=== PATIENT | female | born 1940 | race Caucasian/White ===

== ENCOUNTER → 2016-10-01 | Outpatient (CLI) | payer OTHER, MEDICARE ==
--- NOTE | 2016-10-01 12:59 | MA ---
Screening Digital Mammogram With iCAD Indication: Routine screening. Technique: Standard cephalocaudal and mediolateral oblique projections were obtained. This examinat ion was processed by the iCAD computer-aided detection system. Comparison: September 2015, August 2014, August 2013, August 2012, and August 2011 Breast density: Type B. Findings: CAD was reviewed. No suspicious microcalcifications, mass, or architectural distortion. Impression: Negative mammogram BI-RADS 1: Negative mammogram. Recommendation: Routine screening is recommended in one year[facility]. Negative mammography should not preclude additional workup of a clinically suspicious finding. The patient's information is entered into a reminder system with a target due date for her next mammo gram.
== END ==
LOC: CIMAGING 10:17
PROVIDERS: ATTEND Family Medicine
DX: Z12.31 Encounter for screening mammogram for malignant neoplasm of breast (principal)
CPT/HCPCS: G0202

== ENCOUNTER → 2017-10-02 | Outpatient (CLI) | payer OTHER, MEDICARE | LOC: CIMAGING 09:31 | PROVIDERS: ATTEND Family Medicine | DX: Z12.31 Encounter for screening mammogram for malignant neoplasm of breast (principal) ==

== ENCOUNTER 2018-08-28 17:16 | Observation (INO) | payer OTHER, MEDICARE ==
--- NOTE | 2018-08-28 17:57 | EDPHY ---
H & P Time Seen by Provider: 08/28/18 17:37 HPI/ROS: CHIEF COMPLAINT: Rapid heartbeat HISTORY OF PRESENT ILLNESS: The patient is a 77-year-old female with a history of hypertension who presents emergency department with rapid heart beat. Patient states that 1 week ago she had a pounding in her chest and subsequently felt weak. These symptoms resolved. She walks a 1000 steps today. She states yesterday she again had an episode of weakness, but no pounding heart. She has minimal shortness of breath. No cough or fever. No leg pain or swelling. The patient denies any recent fevers or chills. The patient went to see her primary care physician today. An EKG revealed atrial flutter at 140 bpm. Her primary care physician gave her she appeared but that had Eliquis 5 mg twice daily and Cardizem 120 mg once daily with a plan to follow-up with [facility]. Per report, he sent the EKG to [facility] and they recommend the patient be evaluated in the emergency department. Patient feels well at this time. No chest pain. REVIEW OF SYSTEMS: 10 systems were reveiwed and are negative with the exception of the elements mentioned in the history of present illness. Past Medical/Surgical History: Includes hypertension Past surgical history: Noncontributory Social history: Patient does not smoke Smoking Status: Never smoked Physical Exam: Vitals noted. Heart rate 137. Blood pressure 158/109 GENERAL: Well-appearing, in no acute distress, alert. HEENT: Eyes normal to inspection, normal pharynx, no signs of dehydration. NECK: Normal, supple. RESPIRATORY: Clear to auscultation bilaterally, no rales, rhonchi or wheezing. CVS: Regular tachycardia, no rubs, murmurs, or gallops. ABDOMEN: Soft, nontender, nondistended, no organomegaly. BACK: Normal to inspection, no CVA tenderness. SKIN: Normal color, no rash, warm, dry. No pallor. EXTREMITIES: No pedal edema, no calf tenderness, no Homans sign or cords, no joint swelling. NEURO/PSYCH: Alert and oriented, normal mood and affect, normal motor sensory exam. No obvious cranial nerve deficit. Constitutional: Initial Vital Signs Temperature (C) 36.4 C 08/28/18 17:19 Heart Rate 137 H 08/28/18 17:19 Respiratory Rate 18 08/28/18 17:19 Blood Pressure 158/109 H 08/28/18 17:19 O2 Sat (%) 97 08/28/18 17:19 O2 Delivery Mode Room Air Allergies/Adverse Reactions: No Known Allergies Allergy (Unverified 08/28/18 17:23) Home Medications: Medication Instructions Recorded Enalapril Maleate [Vasotec 10 MG 10 mg PO DAILY 08/28/18 (*)] Herbals/Supplements -Info Only 1 ea PO DAILY 08/28/18 Simvastatin 10 mg PO HS 08/28/18 Medical Decision Making ED Course/Re-evaluation: In the emergency department I discussed possible etiologies with the patient answered all her questions. An IV was placed. Laboratory studies, EKG and chest x-ray were obtained. My EKG: Atrial flutter at 137. Left axis deviation. Flipped T-waves V5 and V6. I discussed the case with Dr. Aniya Guerin from Cardiology. She recommended diltiazem bolus and then diltiazem drip. She recommended admission. I discussed this plan with the patient. I answered all her questions. I discussed the case with Dr. Forrester from the hospitalist service. He will admit the patient. The CBC was normal. Coags are normal. D-dimer is negative. Chemistry panel showed mild hyponatremia. Differential Diagnosis: My differential includes but is not limited to atrial fibrillation, atrial flutter, SVT, ACS, acute VA, electrolyte abnormality, sugar abnormality, dehydration Critical Care Time: The patient required 35 min of critical care time. This was exclusive of any unbundled procedure. This was due the patient's rapid heart rate, consultation with Cardiology and hospitalist service, time spent at the bedside and treatment with diltiazem. - Data Points Medications Given: Discontinued Medications Aspirin (Aspirin) 324 mg PO EDNOW ONE Stop: 08/28/18 18:02 Last Admin: 08/28/18 18:19 Dose: 324 mg Diltiazem HCl (Cardizem 25 Mg/5 Ml Vial) 10 mg IVP EDNOW ONE Stop: 08/28/18 18:02 Last Admin: 08/28/18 18:20 Dose: 10 mg Diltiazem HCl 125 mg/ Dextrose 125 mls @ 0 mls/hr IV EDNOW ONE; As Directed PRN Reason: Protocol Stop: 08/28/18 18:02 Last Admin: 08/28/18 18:56 Dose: 125 mls Departure - Departure Disposition: [facility] Acute Clinical Impression: Atrial flutter with rapid ventricular response Atrial flutter Qualifiers: Atrial flutter type: typical Qualified Code(s): I48.3 - Typical atrial flutter Condition: Good
[2018-08-28] MEDS ORDERED: DILTIAZEM 125 MG in D5W 125 ML IV ONE (18:01)
[2018-08-28] MEDS ORDERED: ASPIRIN 81 MG CHEWABLE TAB PO ONE (18:01)
[2018-08-28] MEDS ORDERED: DILTIAZEM 25 MG/5 ML VIAL IVP ONE ×2 (18:01→19:45)
[2018-08-28 18:37] LABS: PLATELET COUNT 209 10^3/uL (150-400)
[2018-08-28 18:45] LABS: INR 0.98 (0.83-1.16); PROTIME(PATIENT) 13.2 SEC (12.0-15.0)
[2018-08-28] MEDS ORDERED: ONDANSETRON DISINTEGRATING 4 MG TAB PO PRN (19:59)
[2018-08-28] MEDS ORDERED: ONDANSETRON 4 MG/2 ML VIAL IVP PRN (19:59)
[2018-08-28] MEDS ORDERED: ACETAMINOPHEN 325 MG TAB PO PRN (19:59)
--- NOTE | 2018-08-28 20:52 | GHP ---
DATE OF ADMISSION: 08/28/2018 HISTORY OF PRESENT ILLNESS: The patient is a 77-year-old female with a history of hypertension and h yperlipidemia, who presents to the hospital today with palpitations. Actually on , she had an episode of palpitations that lasted a few minutes. It happened 3 times that day. It then hap pened again yesterday. She felt weak during it. She did not have chest pain or shortness of breath or diaphoresis. She became concerned with symptoms and presented to her primary care physician today , where she was found to have an EKG that showed atrial flutter in the 130s, and she was referred to the emergency department. When I see the patient, she is in atrial flutter at about 135 beats a minute. She otherwise feels we ll. She is not having chest pain. She has not had lower extremity edema. She does not drink alcoho l. She has had no thyroid dysfunction, and no family or personal history of atrial arrhythmias. REVIEW OF SYSTEMS: Complete 10-point review of systems is conducted. Negative, except as noted in t he HPI. PAST MEDICAL HISTORY: Hypertension, hyperlipidemia, and obesity. She has lost [address] couple of years on purpose. ALLERGIES: She has no known drug allergies. HOME MEDICATIONS: Lisinopril/hydrochlorothiazide, simvastatin. She took aspirin with the onset of t hese symptoms. SOCIAL HISTORY: No alcohol. Lives in [place]. Daughter present at the bedside. FAMILY HISTORY: Reviewed and unremarkable. PHYSICAL EXAM: VITAL SIGNS: Temp 36.7, blood pressure , pulse 115, breathing 18 times a m inute, 95% on room air. GENERAL: No acute distress. HEENT: Sclerae anicteric. Oropharynx is lila r. Mucous membranes are moist. NECK: Supple without lymphadenopathy or JVD. LUNGS: Clear to ausc ultation bilaterally. HEART: S1, S2. Tachycardic. No significant murmurs. ABDOMEN: Soft, nonten rene, nondistended. LOWER EXTREMITIES: Without edema. Calves nontender. SKIN: Without rash. NEUR OLOGIC: Nonfocal. LABORATORY DATA: White count 6, hematocrit 47, platelets 209,000. INR and D-dimer are normal. Sodi um 134, potassium 4.5, chloride 103, bicarb 22, BUN 31, creatinine 0.9. Troponin is pending. Initia l [id number] troponin 0.01. Chest x-ray interpreted by me shows no acute cardiopulmonary disease. Moderate cardiac enlargement. EKG shows A flutter at 137 with normal axis and intervals. There ar e no ST or T-wave changes. I have discussed the case with Dr. Vivek Bonds as well as Dr. Malatih Graham. ASSESSMENT AND PLAN: 77-year-old female with new atrial flutter. 1. Atrial flutter. This is pretty rapid and somewhat refractory to diltiazem, although it appears s he is slowing down a bit. If she has not slowed down significantly to about 100 or less, I will swit ch over to amiodarone. I will order echocardiogram, repeat a troponin. I have started her on Eliqui s. I have made her nothing by mouth past midnight, and Cardiology will see her for likely cardiovers ion if she does not overnight. 2. Hyperlipidemia. Continue her statin. 3. Hypertension. Will hold her antihypertensives now. 4. Prophylaxis. She is started on Eliquis. 5. Hyponatremia. This is mild at 134 and not contributing to the current situation. DISPOSITION: Observation status. /[id number]/MODL
[2018-08-28] MEDS ORDERED: PRAVASTATIN SODIUM 20 MG TAB PO SCH (21:00)
[2018-08-28] MEDS ORDERED: AMIODARONE HCL 200 ML IV ONE (22:07)
[2018-08-28] MEDS ORDERED: AMIODARONE HCL 100 ML IV ONE (22:07)
[2018-08-28] MEDS: APIXABAN 5 MG TAB PO SCH (22:30)
[2018-08-29] MEDS ORDERED: AMIODARONE HCL 540 MG in D5W 300 ML IV ONE (04:30)
[2018-08-29] MEDS: APIXABAN 5 MG TAB PO SCH (09:55)
[2018-08-29] MEDS ORDERED: ATROPINE SULFATE 1 MG/10 ML SYR IVP ONE (09:59)
--- NOTE | 2018-08-29 10:38 | PDANEPAE ---
ANE History of Present Illness RADHA, CV ANE Past Medical History - Cardiovascular History Hx Hypertension: Yes Hx Arrhythmias: Yes Hx Chest Pain: No Hx Coronary Artery / Peripheral Vascular Disease: No Hx CHF / Valvular Disease: No Hx Palpitations: No - Pulmonary History Hx COPD: No Hx Asthma/Reactive Airway Disease: No Hx Recent Upper Respiratory Infection: No Hx Oxygen in Use at Home: No Hx Sleep Apnea: No - Endocrine History Hx Diabetes: No - Chronic Pain History Chronic Pain: No ANE Review of Systems Review of systems is: negative Review of Systems: - Exercise capacity Exercise capacity: >=4 METS ANE Patient History - Allergies Allergies/Adverse Reactions: No Known Allergies Allergy (Unverified 08/28/18 17:23) - Home Medications Home medications: home medication list seen and reviewed Home Medications: Enalapril Maleate [Vasotec 10 MG (*)] 10 mg PO DAILY 08/28/18 [Last Taken 07:30] Herbals/Supplements -Info Only 1 ea PO DAILY 08/28/18 [Last Taken 08/28/18] Simvastatin 10 mg PO HS 08/28/18 [Last Taken 08/27/18] - Anes Hx Anes Hx: no prior problems - Smoking Hx Smoking Status: Never smoked ANE Labs/Vital Signs - Labs Result Diagrams: 08/28/18 18:15 08/29/18 03:44 - Vital Signs Blood Pressure: 98/88 Heart Rate: 127 Respiratory Rate: 18 O2 Sat (%): 97 Height: 158.75 cm Weight: 73 kg ANE Physical Exam - Airway Neck exam: FROM Mallampati Score: Class 2 Mouth exam: normal dental/mouth exam - Pulmonary Pulmonary: no respiratory distress - Cardiovascular Cardiovascular: regular rate and rhythym - ASA Status ASA Status: II ANE Anesthesia Plan Anesthesia Plan: GA with mask
[2018-08-29] MEDS ORDERED: PROPOFOL 200 MG/20 ML VIAL ONE (10:41)
--- NOTE | 2018-08-29 11:04 | POSTANESTH ---
Post Anesthetic Evaluation Cardiovascular Status: Normal, Stable Respiratory Status: Normal, Stable Level of Consciousness/Mental Status: Can Participate in Eval, Mildly Sleepy, Arousable Pain Control: Adequate, Prn Tx Ordered Nausea/Vomiting Control: Adequate, Prn Tx Ordered Complications Possibly Related to Anesthesia: None Noted
--- NOTE | 2018-08-29 11:15 | GCON ---
CARDIAC CONSULTATION DATE OF CONSULTATION: 08/29/2018 CHIEF COMPLAINT: Palpitations. HISTORY OF PRESENT ILLNESS: The patient is a 77-year-old female with a history of hypertension and hyperlipidemia, who presented to her primary care physician' s office yesterday in atrial flutter with rapid ventricular rates. Around Nelson time, she had noted palpitations, which felt like a pounding in her chest. Her episodes would last for approximately 5 minutes and resolved with her sitting down. On 1 day, this occurred 3 times. Her palpitations were associated with some weakness, but she denied any chest pain, shortness of breath, presyncope, or syncope. Approximately 2 days ago, she again felt palpitations with associated weakness. She tried to eat some toast and felt better after that. She has continued to walk her 10,000 steps during this time period without associated symptoms. On admission to the hospital, she does appear to be in atrial flutter versus an atrial tachycardia with rates of 140 beats per minute. She was initially given diltiazem but was somewhat refractory to this. She was then started on amiodarone for rate control. Her rates continued to be in the 120s despite medical therapy. PAST MEDICAL HISTORY: Hypertension, hyperlipidemia, obesity. FAMILY HISTORY: Her father had a CVA at the age of 58. She denies any family history of coronary artery disease. SOCIAL HISTORY: She denies any history of tobacco use. [facility]. She does have a daughter who lives nearby. REVIEW OF SYSTEMS: Negative, except for what is stated in the H and P. HOME MEDICATIONS: Simvastatin 10 mg at bedtime, herbal supplement daily, Vasotec 10 mg daily. ALLERGIES: No known drug allergies. PHYSICAL EXAMINATION: GENERAL: Patient appears in no acute distress. VITALS: Blood pressure 98/88, heart rate 127, oxygen saturation of 97% on room air. Afebrile. EYES: Conjunctivae within normal limits. NECK: No carotid bruits or JVD present. LUNGS: Clear to auscultation. No wheezes, rhonchi, or crackles auscultated. CARDIAC: Tachycardic, without any murmurs, rubs, or gallops appreciated. ABDOMEN: Soft, nontender, nondistended. EXTREMITIES: Palpable pulses bilaterally, without any evidence of edema. NEUROLOGIC: Nonfocal. PSYCHIATRIC: Mood and affect appropriate. SKIN: No obvious rashes or ecchymosis identified. LABORATORY DATA: D-dimer 0.34. Troponin negative x2. TSH 8.63. Sodium 136, potassium 4.6, chloride 108, bicarb 20, BUN 29, creatinine 0.7. ASSESSMENT: The patient is a 77-year-old female with a history of hypertension and hyperlipidemia, who presents in atrial flutter with rapid ventricular rates. PLAN: The patient presented in atrial flutter versus less likely left atrial tachycarcia with rapid ventricular rates of 140 beats per minute. She is minimally symptomatic, only complaining of intermittent palpitations. She was given a trial of diltiazem without any improvement in her rates. She was then started on amiodarone, and her rates are slightly better controlled but still elevated at 120 beats per minute. Medical management versus RADHA cardioversion were discussed with her today. She has agreed to proceed with a RADHA cardioversion. Her CHADS-VASc score is 4, and she was started on Eliquis 5 mg b.i.d. Consider reducing Vasotec and adding low dose beta celina for rate control. Follow up with Cardiology 1 week post cardioversion. /[id number]/MODL MTDD
--- NOTE | 2018-08-29 12:16 | PDTEE1 ---
RADHA Cardioversion Procedure Procedure: electrical cardioversion, transesophageal echo Indications: other (atrial flutter) Consent: signed and in chart Anticoagulation: eliquis Procedural Details: After consents for anesthesia, RADHA, and possible cardioversion were signed and in the chart, the patient was positioned on the left lateral side. Sedation was induced, and the RADHA probe was placed without difficulty. Standard views were obtained. Preliminary RADHA findings (1) Normal left ventricular systolic ejection fraction (2) Moderate biatrial dilation (3) Mild mitral regurgitation (4) Mild tricuspid regurgitation (5) Trileaflet aortic valve with sclerosis, but no stenosis. Physiologic insufficiency (6) Physiologic pulmonic insufficiency (7) Bubble contrast injection without right to left passage (8) No thrombus to the left atrial appendage (9) Mild atheroma to the descending aorta Given a lack of thrombus to the MORGAN, we opted to proceed with cardioversion. Synchronized cardioversion attempt #1: 200J Results: normal sinus rhythm (after a brief 9 beat run of VT was noted.) Conclusions: successful RADHA cardioversion Patient Problems: Problems Problem Status Onset Atrial flutter Acute Atrial flutter with rapid ventricular response Acute
--- NOTE | 2018-08-29 12:19 | ECHO ---
[email or web address] [address] [address] Main: [phone] Fax: Transesophageal Echocardiography Name: MARCO A JERNIGAN MR#: [id number] Study Date: 08/29/2018 Study Time: 10:39 AM Date of : 1940 Age: 77 year(s) Height: ( ) Weight: ( ) BSA: Gender: Female Examination: Indication: Pre Cardioversion Image Quality: Contrast: Requested by: Alexa Kevin Heart Rate: Rhythm: Atrial flutter BP: / Procedure Staff [employer] Territory Manager: Evans Bear RDCS Reading Physician: Vivek Bonds MD Requesting Provider: RADHA Exam Details Conclusions: Normal size left ventricle. Normal global systolic LV function. No regional wall motion abnormality. Normal size right ventricle. Normal RV function. The left atrium is mildly dilated. An agitated saline study was performed and was negative for intracardiac shunting. Good color flow doppler in the left atrial appendage. No thrombus in left appendage. The right atrium is mildly dilated. The mitral valve is normal in appearance. Mild mitral valve regurgitation is present. The aortic valve is tri-leaflet. The aortic valve is normal in appearance. The tricuspid valve appears normal. Mild tricuspid regurgitation is present. Measurements: Chambers Valvular Assessment AV/MV Valvular Assessment TV/PV Normal Normal Normal Name Value Range Name Value Range Name Value Range Additional Measurements: Patient: MARCO A JERNIGAN Study Date: 08/29/2018 Page 1 of 2 10:39 AM Findings: Left Ventricle: Normal size left ventricle. Normal global systolic LV function. No regional wall motion abnormality. Right Ventricle: Normal size right ventricle. Normal RV function. Left Atrium: The left atrium is mildly dilated. An agitated saline study was performed and was negative for intracardiac shunting. Left Atrial Appendage: Good color flow doppler in the left atrial appendage. No thrombus in left appendage. Right Atrium: The right atrium is mildly dilated. Mitral Valve: The mitral valve is normal in appearance. Mild mitral valve regurgitation is present. Aortic Valve: The aortic valve is tri-leaflet. The aortic valve is normal in appearance. Tricuspid Valve: The tricuspid valve appears normal. Mild tricuspid regurgitation is present. Pulmonic Valve: The pulmonic valve is normal in appearance and function. Exam Comments: Proceeded with successful elective DC cardioversion.. l1n (No Signature Object) Patient: MARCO A JERNIGAN Study Date: 08/29/2018 Page 2 of 2 10:39 AM [id number]
--- NOTE | 2018-08-29 12:43 | ECHO ---
[email or web address] [address] [address] Main: [phone] Fax: Transthoracic Echocardiogram Name: MARCO A JERNIGAN MR#: [id number] Study Date: 08/29/2018 Study Time: 08:04 AM Date of : 1940 Age: 77 year(s) Height: 157.5 cm (62 in.) Weight: 72.58 kg (160 lb.) BSA: 1.74 m2 Gender: Female Examination: Echo Indication: New onset of Atrial Flutter Image Quality: Contrast: Requested by: Wilver Forrester BP: 98 mmHg/88 mmHg Heart Rate: Rhythm: Atrial flutter Indication: New onset of Atrial Flutter Procedure Staff Rn Lpn Cna: Evans Bear RD Reading Physician: Vivek Bonds MD Requesting Provider: Conclusions: Normal size left ventricle. No LV hypertrophy. Normal global systolic LV function. EF is 55 %. No regional wall motion abnormality. Diastolic dysfunction is present. . Normal size right ventricle. No RV hypertrophy. The left atrium is normal in size. The right atrium is normal in size. The mitral valve is normal in appearance. Mild mitral valve regurgitation is present. The aortic valve is normal in appearance and function. There is no significant aortic valve regurgitation. The tricuspid valve is normal in appearance and function. The pulmonic valve is normal in appearance and function. No pericardial effusion. Measurements: Chambers Valvular Assessment AV/MV Valvular Assessment TV/PV Normal Normal Normal Name Value Range Name Value Range Name Value Range Ao Adelita (MM): 2.9 cm (2.2 cm-3.7 AV Vmax: 1.25 m/s (1 m/s-1.7 PV Vmax: 0.64 m/s (0.6 m/s-0.9 cm) m/s) m/s) IVSd (2D): 0.7 cm (0.6 cm-1.1 AV maxP mmHg ( - ) PV PGmax: 2 mmHg ( - ) cm) LVOT Vmax: 0.74 m/s (0.7 m/s-1.1 LVDd (2D): 4.0 cm (3.9 cm-5.3 m/s) cm) MV E Vmax: 0.71 m/s ( - ) LVDs (2D): 2.9 cm (2.1 cm-4 cm) Patient: MARCO A JERNIGAN Study Date: 08/29/2018 Page 1 of 2 08:04 AM LVPWd (2D): 1.0 cm ( - ) LVEF (2D): 55 (>=54 %) Continued Measurements: Chambers Valvular Assessment AV/MV Name Value Name Value LADs: 4.1 cm MV E/E' Septal: 7.60 LADs Lon.2 cm MV E/E' Lateral: 5.60 LA Area: 17.4 cm2 LA Volume: 54 ml LA Volume Index: 31.0 ml/m2 Findings: Left Ventricle: Normal size left ventricle. No LV hypertrophy. Normal global systolic LV function. EF is 55 %. No regional wall motion abnormality. Diastolic dysfunction is present. . Right Ventricle: Normal size right ventricle. No RV hypertrophy. Normal RV function. Left Atrium: The left atrium is normal in size. Right Atrium: The right atrium is normal in size. Mitral Valve: The mitral valve is normal in appearance. Mild mitral valve regurgitation is present. Aortic Valve: The aortic valve is normal in appearance and function. There is no significant aortic valve regurgitation. Tricuspid Valve: The tricuspid valve is normal in appearance and function. Pulmonic Valve: The pulmonic valve is normal in appearance and function. Aorta: The aorta is normal. Pericardium: No pericardial effusion. (No Signature Object) Patient: MARCO A JERNIGAN Study Date: 08/29/2018 Page 2 of 2 08:04 AM [id number]
[2018-08-29 15:51] VITALS: BP 138/84
--- NOTE | 2018-08-29 16:42 | PDDCSUM ---
Discharge Summary Discharge Summary: 77 yo female admitted with new onset afib. Her BP did not tolerate CCB. She was started on Amio w/o significant improvement. She was cardioverted successfully. She was started on Eliquis. Amiodarone was not continued. She will f/u with Cardiology DDX: #New onset Afib #HTN #HLD meds: see med rec f/u: per above total time spend on d/c is 35 mins
--- NOTE | 2018-08-30 14:33 | CPEKG ---
Test Reason : OPEN Blood Pressure : / mmHG Vent. Rate : 137 BPM Atrial Rate : 136 BPM P-R Int : 119 ms QRS Dur : 094 ms QT Int : 378 ms P-R-T Axes : 097 -32 -78 degrees QTc Int : 571 ms Sinus tachycardia Left axis deviation Nonspecific T abnormalities, diffuse leads Prolonged QT interval Confirmed by Malathi Graham ([id number]) on 08/30/2018 2:33:37 PM Referred By: Confirmed By:Malathi Graham
--- NOTE | 2018-08-31 09:01 | CPEKG ---
Test Reason : OPEN Blood Pressure : / mmHG Vent. Rate : 123 BPM Atrial Rate : 123 BPM P-R Int : 138 ms QRS Dur : 090 ms QT Int : 342 ms P-R-T Axes : 095 -05 -12 degrees QTc Int : 490 ms Sinus tachycardia Nonspecific T abnormalities, inferior leads Borderline prolonged QT interval Confirmed by Vivek Bonds ([id number]) on 08/31/2018 9:01:00 AM Referred By: Confirmed By:Vivek Bonds
--- NOTE | 2018-08-31 09:06 | CPEKG ---
Test Reason : OPEN Blood Pressure : / mmHG Vent. Rate : 071 BPM Atrial Rate : 072 BPM P-R Int : 199 ms QRS Dur : 093 ms QT Int : 411 ms P-R-T Axes : -55 021 041 degrees QTc Int : 447 ms Sinus or ectopic atrial rhythm Atrial premature complexes Confirmed by Vivek Bonds ([id number]) on 08/31/2018 9:05:21 AM Referred By: Confirmed By:Vivek Bonds
== END 2018-08-29 17:14 | disposition home or self-care (01) ==
LOC: F2W 20:40
PROVIDERS: ADMIT Internal Medicine; ATTEND Family Medicine
DX: I48.92 Unspecified atrial flutter (principal); I10 Essential (primary) hypertension; E66.9 Obesity, unspecified; E78.5 Hyperlipidemia, unspecified; E87.1 Hypo-osmolality and hyponatremia
CPT/HCPCS: 71045; 92960; 93005; 93306; 93312; G0378; J0282; 84484-ER; J0461; J2704

== ENCOUNTER → 2018-09-17 | Outpatient (CLI) | payer OTHER, MEDICARE | LOC: BHFA 09:30 | PROVIDERS: ATTEND Internal Medicine Cardiovascular Disease | DX: I47.2 Ventricular tachycardia (principal) | CPT/HCPCS: 78452; 93017; A9500; J2785 ==

== ENCOUNTER → 2018-09-30 | Outpatient (CLI) | payer OTHER, MEDICARE | LOC: CIMAGING 10:27 | PROVIDERS: ATTEND Family Medicine | DX: Z12.31 Encounter for screening mammogram for malignant neoplasm of breast (principal) ==